=== PATIENT | male | born 1980 | race Asian ===

== ENCOUNTER 2017-04-25 03:40 | Emergency (ER) | payer SELFPAY ==
[~2017-04-25] VITALS: Ht 172.7 cm; Wt 103.3 kg
[2017-04-25 05:49] VITALS: BP 131/96
== END 2017-04-25 05:51 | disposition home or self-care (01) ==
LOC: EME 03:40
DX: S01.01XA Laceration without foreign body of scalp, initial encounter (principal); Z23 Encounter for immunization; Y00.XXXA Assault by blunt object, initial encounter
CPT/HCPCS: 99281; 99284

== ENCOUNTER 2017-05-06 01:32 | Emergency (ER) | payer SELFPAY ==
[~2017-05-06] VITALS: Ht 175.3 cm; Wt 106.5 kg
[2017-05-06 02:08] VITALS: BP 136/82
== END 2017-05-06 02:09 | disposition home or self-care (01) ==
LOC: EME 01:32
DX: S01.01XD Laceration without foreign body of scalp, subsequent encounter (principal); X99.0XXD Assault by sharp glass, subsequent encounter; F17.200 Nicotine dependence, unspecified, uncomplicated
CPT/HCPCS: 99281; 99283